=== PATIENT | male | born 1990 | race Caucasian/White ===

== ENCOUNTER → 2018-10-25 | Outpatient (CLI) | payer OTHER ==
[~2018-10-25] MED LIST: ACET500 PO; Bactrim Ds Tab1 EACH PO; CEPH250A PO; CEPH500 PO; GABA100; IBUP400 PO; LEVO750 PO; ONDA4ODT MM; OXYACE5T PO; Percocet 10-321 EACH; RXOXYACE PO; Ultram50 MG PO
== END ==
LOC: PLD 07:12 → LAB SHORT 07:12
DX: D17.1 Benign lipomatous neoplasm of skin and subcutaneous tissue of trunk (principal)
CPT/HCPCS: 88304

== ENCOUNTER 2021-05-27 11:27 | Day surgery (SDC) | payer OTHER ==
[~2021-05-27] VITALS: Ht 188 cm; Wt 114.8 kg
[2021-05-27] MEDS ORDERED: IBUP200 (12:54)
== END 2021-05-27 15:20 | disposition home or self-care (01) ==
LOC: ORSCSDS 11:27
PROVIDERS: Internal Medicine Gastroenterology
PROC: 0DB58ZX Excision of Esophagus, Via Natural or Artificial Opening Endoscopic, Diagnostic (ICD-10-PCS; principal; 2021-05-27 13:45)
PROC: 0DB78ZX Excision of Stomach, Pylorus, Via Natural or Artificial Opening Endoscopic, Diagnostic (ICD-10-PCS; principal; 2021-05-27 13:45)
PROC: 0DBE8ZX Excision of Large Intestine, Via Natural or Artificial Opening Endoscopic, Diagnostic (ICD-10-PCS; principal; 2021-05-27 13:45)
PROC: 0DBP8ZX Excision of Rectum, Via Natural or Artificial Opening Endoscopic, Diagnostic (ICD-10-PCS; principal; 2021-05-27 13:45)
PROC: 0DBN8ZX Excision of Sigmoid Colon, Via Natural or Artificial Opening Endoscopic, Diagnostic (ICD-10-PCS; principal; 2021-05-27 13:45)
PROC: 0DBK8ZX Excision of Ascending Colon, Via Natural or Artificial Opening Endoscopic, Diagnostic (ICD-10-PCS; principal; 2021-05-27 13:45)
DX: R19.4 Change in bowel habit (principal); K62.5 Hemorrhage of anus and rectum; R11.2 Nausea with vomiting, unspecified; D12.4 Benign neoplasm of descending colon; D12.5 Benign neoplasm of sigmoid colon; K22.70 Barrett's esophagus without dysplasia; K29.70 Gastritis, unspecified, without bleeding; Z87.891 Personal history of nicotine dependence
CPT/HCPCS: 88305; 88342; J2704; J7120

== ENCOUNTER 2023-11-21 10:55 | Emergency (ER) | payer OTHER ==
[~2023-11-21] VITALS: Ht 188 cm; Wt 113.4 kg
[~2023-11-21 10:55] MED LIST changes: +IBUP200
[2023-11-21 11:04] VITALS: BP 176/111
[2023-11-21] MEDS ORDERED: Diphth,Pertuss(Acell),Tet Vac 0.5 ML VIAL IM ONE (11:25)
[2023-11-21 13:01] LABS: Influenza A, PCR NEGATIVE (NEGATIVE); Influenza B, PCR NEGATIVE (NEGATIVE); Resp Syncytial Virus, PCR NEGATIVE (NEGATIVE); SARS-Cov-2 (COVID-19) PCR, MMC NEGATIVE (NEGATIVE)
== END 2023-11-21 12:50 | disposition home or self-care (01) ==
LOC: ER 10:55
PROVIDERS: Physician Assistant
DX: S61.411A Laceration without foreign body of right hand, initial encounter (principal); W25.XXXA Contact with sharp glass, initial encounter; F17.200 Nicotine dependence, unspecified, uncomplicated; Z79.899 Other long term (current) drug therapy; Z23 Encounter for immunization
CPT/HCPCS: 0241U; 12002; 90471; 90715; 99283-25